=== PATIENT | female | born 1990 | race Native Hawaiian/Other Pacific Islander ===

== ENCOUNTER 2019-12-09 00:47 | Emergency (ER) | payer OTHER ==
[~2019-12-09] VITALS: Ht 154.9 cm; Wt 62.1 kg
[2019-12-09 02:00] VITALS: BP 98/60; TEMP 98.6
== END 2019-12-09 02:00 | disposition home or self-care (01) ==
LOC: ED 00:47
DX: J36 Peritonsillar abscess (principal); Z79.2 Long term (current) use of antibiotics
CPT/HCPCS: 87502; 87651; 96372; 99283; J0696